=== PATIENT | male | born 1940 | race Asian ===

== ENCOUNTER 2017-01-25 05:50 | Emergency (ER) | payer MEDICARE, OTHER ==
[~2017-01-25] VITALS: Ht 167.6 cm; Wt 75.0 kg
[2017-01-25] MEDS ORDERED: VITAD400 PO (06:07)
[2017-01-25] MEDS ORDERED: ASPI81TA39 PO (06:07)
[2017-01-25] MEDS ORDERED: COLE625 PO (06:07)
[2017-01-25] MEDS ORDERED: GARL10005 PO (06:07)
[2017-01-25] MEDS ORDERED: FOLI-74 PO (06:07)
[2017-01-25] MEDS ORDERED: TELM40 PO (06:07)
[2017-01-25] MEDS ORDERED: METO25 PO (06:07)
[2017-01-25] MEDS ORDERED: ALLO300 PO (06:07)
[2017-01-25] MEDS ORDERED: ROSU10 PO (06:07)
[2017-01-25] MEDS ORDERED: CALC-52 PO (06:07)
[2017-01-25] MEDS ORDERED: NITROGLYCERIN 400 MCG/SUBLINGUAL SPRAY 4.9 GM BOTTLE SL ONE ×2 (06:27→06:30)
[2017-01-25 06:38] LABS: BASOPHILS % (AUTO) 0.4 % (0.0-2.0); HEMATOCRIT 41.3 % (41-53); HEMOGLOBIN 14.3 g/dL (13.5-17.5); LYMPHOCYTES # (AUTO) 3.5 K/uL (1.0-4.8); LYMPHOCYTES % (AUTO) 50.5 % (22.0-44.0); MEAN CORPUSCULAR HEMOGLOBIN 32.5 pg (26.0-34.0); MEAN CORPUSCULAR HGB CONC 34.6 G/dL (31.0-37.0); MEAN CORPUSCULAR VOLUME 94 fL (80-100); MONOCYTES # (AUTO) 0.4 K/uL (0.1-1.0); MONOCYTES % (AUTO) 5.8 % (2.0-9.0); NEUTROPHILS # (AUTO) 2.8 K/uL (1.8-7.7); NEUTROPHILS % (AUTO) 40.3 % (40.0-70.0); PLATELET COUNT (AUTO) 173 K/uL (150-450); RED BLOOD CELL COUNT(AUTO) 4.39 MIL/uL (4.50-5.90); RED CELL DISTRIBUTION WIDTH 14.3 % (11.5-14.5); WHITE BLOOD COUNT (AUTO) 6.9 K/uL (4.5-11.0)
[2017-01-25 06:47] LABS: ANION GAP 9 mmol/L (8-16); CALCIUM, TOTAL 8.9 mg/dL (8.8-10.5); CARBON DIOXIDE 26 mmol/L (22-29); CHLORIDE 106 mmol/L (98-107); CREATININE 1.23 mg/dL (0.60-1.30); GLOMERULAR FILTR. RATE CALC 57 mL/min (>60); SODIUM SERUM 141 mmol/L (136-145); UREA NITROGEN, BLOOD 14 mg/dL (7-18)
[2017-01-25 07:13] LABS: ALANINE AMINOTRANSFERASE 28 U/L (12-78); ALBUMIN 3.9 g/dL (3.4-5.0); ASPARTATE AMINOTRANSFERASE 23 U/L (15-37); BILIRUBIN,TOTAL 0.6 mg/dL (0.1-1.0); CREATINE KINASE MB 0.9 ng/mL (0-5); CREATINE KINASE, TOTAL 125 U/L (39-308); TOTAL PROTEIN, SERUM 7.7 g/dL (6.4-8.2)
[2017-01-25 09:42] LABS: CREATINE KINASE MB 0.9 ng/mL (0-5); CREATINE KINASE, TOTAL 126 U/L (39-308)
[2017-01-25 10:50] VITALS: BP_SYST 146; BP_SYST 147; BP_DIAS 74; BP_DIAS 76
[2017-01-25 11:34] VITALS: BP 153/65
[2017-01-25 12:21] VITALS: BP 126/77
== END 2017-01-25 12:21 | disposition home or self-care (01) ==
LOC: EMS 05:50
DX: R07.9 Chest pain, unspecified (principal); E78.00 Pure hypercholesterolemia, unspecified; I10 Essential (primary) hypertension; Z87.891 Personal history of nicotine dependence; Z79.82 Long term (current) use of aspirin
CPT/HCPCS: 71020; 93005; 93017; 93041; 93306; 93350; 99285

== ENCOUNTER → 2018-01-29 | Outpatient (CLI) | payer MEDICARE, OTHER ==
[~2018-01-29] MED LIST: ALLO300 PO; ASPI81TA39 PO; CALC-52 PO; COLE625 PO; FOLI-74 PO; GARL10005 PO; METO25 PO; ROSU10 PO; TELM40 PO; VITAD400 PO
[2018-01-29 10:51] LABS: BASOPHILS % (AUTO) 0.3 % (0.0-2.0); EOSINOPHILS % (AUTO) 1.6 % (1.0-6.0); HEMOGLOBIN 13.9 g/dL (13.5-17.5); LYMPHOCYTES # (AUTO) 1.9 K/uL (1.0-4.8); LYMPHOCYTES % (AUTO) 35.4 % (22.0-44.0); MEAN CORPUSCULAR HEMOGLOBIN 32.3 pg (26.0-34.0); MEAN CORPUSCULAR HGB CONC 33.9 G/dL (31.0-37.0); MEAN CORPUSCULAR VOLUME 95 fL (80-100); MONOCYTES # (AUTO) 0.4 K/uL (0.1-1.0); MONOCYTES % (AUTO) 6.7 % (2.0-9.0); NEUTROPHILS # (AUTO) 3.1 K/uL (1.8-7.7); PLATELET COUNT (AUTO) 188 K/uL (150-450); RED CELL DISTRIBUTION WIDTH 14.5 % (11.5-14.5)
[2018-01-29 11:01] LABS: PROTHROMBIN TIME 10.2 SEC (9.4-11.6)
[2018-01-29 11:05] LABS: C-REACTIVE PROTEIN QUANT 0.15 mg/dL (0.00-0.30)
[2018-01-29 11:14] LABS: HEMOGLOBIN A1C 6.1 % (4.5-6.2)
[2018-01-29 12:25] LABS: ERYTHROCYTE SEDIMENTATION RATE 5 MM/HR (0-15)
== END | disposition home or self-care (01) ==
LOC: MSR 09:20
PROVIDERS: ATTEND Orthopaedic Surgery Hand Surgery
DX: M65.331 Trigger finger, right middle finger (principal); M65.341 Trigger finger, right ring finger; I70.0 Atherosclerosis of aorta; M46.04 Spinal enthesopathy, thoracic region; Z79.01 Long term (current) use of anticoagulants
CPT/HCPCS: 83036; 85651; 86140